=== PATIENT | female | born 1990 | race Caucasian/White ===

== ENCOUNTER 2022-04-10 07:05 | Day surgery (SDC) | payer OTHER ==
[~2022-04-10 07:05] MED LIST: Sensorcaine 0.25% 10 ML ONE
[2022-04-10] MEDS ORDERED: CEFAZOLIN 2 GM-D5W BAG** 2 GM/50 ML ML IV ONE (07:35)
[2022-04-10] MEDS ORDERED: Lactated Ringers 1,000 ML IV ONE ×2 (07:35→09:49)
[2022-04-10] MEDS ORDERED: Lactated Ringers 1,000 ML IV SCH (08:00)
[2022-04-10] MEDS ORDERED: CEFAZOLIN 2 GM-D5W BAG** 2 GM/50 ML ML IV SCH (08:00)
[2022-04-10] MEDS ORDERED: Versed 2 MG/2 ML Injection ONE (08:22)
[2022-04-10] MEDS ORDERED: Xylocaine-Mpf 2% 5 Ml Vial ONE (08:22)
[2022-04-10] MEDS ORDERED: DIPRIVAN 200 MG/20 ML IV ONE (08:22)
[2022-04-10] MEDS ORDERED: SUBLIMAZE 100 MCG/2 ML ONE ×3 (08:23→09:29)
[2022-04-10] MEDS ORDERED: Zemuron 100 MG/10 ML ONE (08:28)
[2022-04-10] MEDS ORDERED: Decadron 4 MG INJ ONE ×2 (08:33)
[2022-04-10] MEDS ORDERED: Zofran 4 MG/2 ML VIAL ONE (08:33)
[2022-04-10] MEDS ORDERED: BRIDION 200MG/2ML IV ONE (09:12)
[2022-04-10] MEDS ORDERED: TORAdol 30 mg Injection ONE (09:16)
[2022-04-10 10:07] VITALS: O2SAT 94
[2022-04-10] MEDS ORDERED: NORCO 7.5/325 MG TAB PO ONE (10:31)
[2022-04-10 10:44] VITALS: PULSE 90
[2022-04-10] MEDS ORDERED: XYLOCAINE 1% HCL 20 ML MDV ONE (11:06)
[2022-04-10 11:42] VITALS: BP 120/90
[2022-04-10 15:13] LABS: Appearance CLEAR (CLEAR); Bilirubin NEGATIVE (NEGATIVE); Glucose NEGATIVE (NEGATIVE); Ketones NEGATIVE (NEGATIVE); Mucus SLIGHT /HPF (NEGATIVE); Specific Gravity >=1.030 (1.005-1.025); WBC 0-2 /HPF (0-5)
[2022-04-10 15:14] LABS: Dipstick done @ ? MAIN LAB; Nitrite NEGATIVE (NEGATIVE); Protein,Urine Dip TRACE (Negative); RBC TRACE-INTACT Ery/ul (0-5); Urobilinogen 0.2 mg/dL (0-1)
--- NOTE | 2022-04-11 09:58 | OP ---
SURGERY DATE/TIME: 04/10/2022 0837 PREOPERATIVE DIAGNOSES: 1) Multiparity desiring tubal sterilization. 2) Contraceptive care management. POSTOPERATIVE DIAGNOSES: 1) Multiparity desiring tubal sterilization. 2) Contraceptive care management. PROCEDURES: 1) Laparoscopic tubal sterilization via Falope ring application. 2) Removal of Nexplanon from the right arm. SURGEON: Rishabh Sams D.O. JACK MACHINE OPERATOR: Iris Kulkarni surgical device sales representative. ANESTHESIA: General. ESTIMATED BLOOD LOSS: Minimal. COMPLICATIONS: None. INDICATIONS: The risks, benefits, indications and alternatives of the procedure were reviewed with the patient prior to the procedure. The patient understood the risk of infection, bleeding, bowel injury, bladder injury, ureteral injury, uterine perforation, pelvic infection, thromboembolic disorder associated with this surgery as well as all other forms of control discussed with the patient prior to the procedure. DESCRIPTION OF PROCEDURE AND FINDINGS: At this point the patient is taken to the operating room, given general sedation, placed in dorsal lithotomy position, prepped and draped in the usual sterile fashion. At first, the right arm had been extended and lidocaine with epinephrine was injected subcutaneously at the right arm where the Nexplanon had been placed previously. Incision was made with #11 blade and the Nexplanon was removed without complication using the hemostat. A Band-Aid was placed over the incisional site at this point. Attention was then turned to the patient's vaginal region and was surgically prepped and drape in the usual sterile fashion. A weighted speculum is then place into the patient's vagina and the anterior lip of the cervix is grasped with a single tooth tenaculum. From this point, a uterine manipulator was then placed in through the endocervical canal as a means to manipulate the uterus. Attention was then turned to the patient's abdomen where a 5 mm skin incision was made in the umbilical fold where 5 mm trocar and sleeve were advanced under direct visualization where pneumoperitoneum was obtained with 4 liters of CO2 gas. An additional incision was made approximately 2 cm above the symphysis pubis where an 8 mm incision was made and an 8 mm trocar and sleeve were advanced under direct visualization. From this point, visualization of the pelvic region appeared to be within normal limits with no gross abnormalities that were noted. From this point, the Falope ring applicator was then taken through the 8 mm trocar site. The uterus is elevated and on the right fallopian tube on the isthmic region the Falope ring was used to grasp the isthmic region and a knuckle of tube was then grasped and the Falope ring displaced on the isthmic region without complication. Hemostasis was obtained. The same procedure was performed on the left side where the Falope ring applicator was reloaded and the Falope ring was placed on the left isthmic region displaced on its side and hemostasis was obtained with the good knuckle of tube that was obtained. From this point, all instruments were removed from the patient's abdominal region and the incisions were closed with 4-0 Monocryl suture. The patient was then taken out of the dorsal lithotomy position, was taken out of anesthesia and was then taken to the recovery room in stable condition. All instruments and laps were accounted for x2.
== END 2022-04-10 11:10 | disposition home or self-care (01) ==
LOC: SDC 07:05
PROVIDERS: ATTEND Obstetrics & Gynecology
DX: Z30.2 Encounter for sterilization (principal)
CPT/HCPCS: 11982; 58615; 81001; 81025; 87086; J0690; J1100; J1885; J2250; J2405; J2704; J3010; A9270-GY